=== PATIENT | male | born 1960 | race Caucasian/White ===

== ENCOUNTER 2019-12-13 17:00 | Outpatient (CLI) | payer OTHER, SELFPAY ==
--- NOTE | ~2019-12-13 | CT_ITS ---
EXAMINATION: CT lung screening DATE: 12/13/2019 17:48 INDICATION: TOBACCO DEPEND TECHNIQUE: Computed tomography (CT) of the chest was performed without intravenous contrast. Addition al 3D reconstructions utilizing coronal maximum intensity projection (MIP) were performed. Automated exposure control and iterative reconstruction technique were employed. The dose-length product was 11 1.98 mGy-cm. COMPARISON: None FINDINGS: Minimal emphysema with bleb at the medial aspect of the right apex. Minimal scattered linear atelecta sis in the lingula, right middle and bilateral lower lobes. No pneumonia, suspicious pulmonary nodule s, pulmonary edema or pleural effusion. Heart size is normal. No pericardial effusion. Mild ascending thoracic aortic aneurysm measuring 4.0 x 4.2 cm. No pathologically enlarged thoracic lymphadenopathy . Splenic calcification consistent with old granulomatous disease. Mild upper thoracic levocurvature with mild spondylosis. IMPRESSION: 1. Lung-RADS category 1: Negative. Continue annual screening with noncontrast low-dose chest CT in 12 months. 2. Minimal emphysema. 3. 4.2 x 4.0 cm ascending thoracic aortic aneurysm. Reviewed, dictated and finalized at location A. IMPRESSION: 1. Lung-RADS category 1: Negative. Continue annual screening with noncontrast l ow-dose chest CT in 12 months. 2. Minimal emphysema. 3. 4.2 x 4.0 cm ascending thoracic aortic aneurysm.
== END 2019-12-13 17:01 | disposition home or self-care (01) ==
PROVIDERS: PCP Internal Medicine; Visit Provider Internal Medicine
DX: Z12.2 Encounter for screening for malignant neoplasm of respiratory organs (principal); F17.210 Nicotine dependence, cigarettes, uncomplicated; I71.2 Thoracic aortic aneurysm, without rupture
CPT/HCPCS: G0297